=== PATIENT | male | born 1975 | race Caucasian/White ===

== ENCOUNTER 2024-07-03 19:17 | Emergency (ER) | payer SELFPAY ==
[~2024-07-03] VITALS: Ht 175.3 cm; Wt 81.0 kg
[2024-07-03 19:32] VITALS: BP 150/82; PULSE 63; RESP 18; O2SAT 95
--- NOTE | 2024-07-03 19:46 | ED.PDOC ---
Altered Mental Status HPI Comments 39-year-old male came to emergency room via EMS due to overdose, ALOC. Per EMS, [facility] [place] [facility], where witnesses noted patient went out to smoke some weed. Patient was said to never smoked weed before and witnesses claimed he smoked a lot at the [facility]. Patient then started having multiple episodes of nausea and vomiting, and laid down and became unresponsive to verbal stimuli. NO alcohol intake was noted. He does have history of diabetes (blood sugar 298) and recently had a defibrillator inserted. Patient saturating 96% on room air. Chief Complaint: Overdose Time Seen by MD: 19:44 Reviewed Notes: [employer] Operator Notes Allergies: Coded Allergies: NO KNOWN ALLERGIES (Unverified , 07/03/24) Information Source: Emergency Med Personnel Mode of Arrival: EMS Severity: Unable to Care for Self, Unresponsive Timing: Hours Duration: Since onset Prehospital treatment: None Quality: Decreased Alertness, Change in Behavior Recent: Medication/Drug Abuse History of: Diabetes Review of Systems (+) Unable to complete at this time due to the patient being altered Vital Signs Vital Signs Date Time Temp Pulse Resp B/P (MAP) Pulse Ox O2 Delivery O2 Flow Rate FiO2 07/03/24 19:32 97.2 63 18 150/82 (104) 95 Physical Exam General: Patient is obtunded, he responds to painful stimuli, vomitus noted on face Skin: Skin in warm, dry and intact. Appropriate color for ethnicity. Nailbeds pink with no cyanosis. HEENT: The head is normocephalic and atraumatic. Conjunctivae are clear without exudates or hemorrhage. Sclera is non-icteric. EOM are intact. No signs of nys tagmus. Eyelids are normal in appearance without swelling or lesions. Oral mucosa is pink and moist Neck: The neck is supple with normal range of motion. No JVD. Cardiac: Heart rate and rhythm are normal. No murmurs, gallops, or rubs are auscultated. Respiratory: No signs of respiratory distress. Lung sounds are clear in all lobes bilaterally without rales, ronchi, or wheezes. He is protecting his airway. Abdominal: Abdomen is soft, non-tender without distention. Bowel sounds are present and normoactive in all four quadrants. Extremities: Upper and lower extremities are atraumatic in appearance without deformity or edema. Neurological: Patient is obtunded, he reports responds to painful stimuli, follows commands and goes back to sleep, Speech is slurred There is no facial asymmetry. Past Medical History PAST MEDICAL HISTORY: DM Surgical History: Pacemaker Family History Family History: Reviewed,noncontributory to illness Social History Smoker: Non-Smoker Alcohol: Denies ETOH Use Drugs: Marijuana Lives In: Home Was a procedure done? Was a procedure done?: No Differential Diagnosis (ALOC) Differential Diagnosis: Encephalopathy, Seizure, CVA, Drug Overdose X-Ray, Labs, Meds, VS Vital Signs Date Time Temp Pulse Resp B/P (MAP) Pulse Ox O2 Delivery O2 Flow Rate FiO2 07/03/24 19:32 97.2 63 18 150/82 (104) 95 Lab Test 07/03/24 19:56 Range/Units White Blood Count 7.0 4.4-10.8 10^3/uL Red Blood Count 5.07 4.5-5.90 10^6/uL Hemoglobin 14.2 13.5-17.5 g/dL Hematocrit 42.7 41.0-53.0 % Mean Corpuscular Volume 84.1 80.0-100.0 fL Mean Corpuscular Hemoglobin 28.1 28.0-32.0 pg Mean Corpuscular Hemoglobin Concent 33.4 32.0-36.0 g/dL Red Cell Distribution Width 15.4 H 11.8-14.3 % Platelet Count 178 140-450 10^3/uL Mean Platelet Volume 8.3 6.9-10.8 fL Neutrophils (%) (Auto) 84.9 H 37.0-80.0 % Lymphocytes (%) (Auto) 8.0 L 10.0-50.0 % Monocytes (%) (Auto) 6.1 0.0-12.0 % Eosinophils (%) (Auto) 0.7 0.0-7.0 % Basophils (%) (Auto) 0.3 0.0-2.0 % Neutrophils # (Auto) 5.9 1.6-8.6 10 ^3/uL Lymphocytes # (Auto) 0.6 0.4-5.4 10 ^3/uL Monocytes # (Auto) 0.4 0-1.3 10 ^3/uL Eosinophils # (Auto) 0.1 0-0.8 10 ^3/uL Basophils # (Auto) 0 0-0.2 10 ^3/uL Nucleated Red Blood Cells 0.1 % Sodium Level 138 136-145 mmol/L Potassium Level 4.4 3.5-5.1 mmol/L Chloride Level 106 98-107 mmol/L Carbon Dioxide Level 23 20-31 mmol/L Anion Gap 9 5-15 Blood Urea Nitrogen 26 H 9-23 mg/dL Creatinine 1.78 H 0.700-1.30 mg/dL Glomerular Filtration Rate Calc 49 >90 mL/min BUN/Creatinine Ratio 14.6 10.0-20.0 Serum Glucose 236 H 74-106 mg/dL Calcium Level 10.2 8.7-10.4 mg/dL Total Bilirubin 0.4 0.2-1.0 mg/dL Aspartate Amino Transferase (AST) 42 H 13-40 U/L Alanine Aminotransferase (ALT) 77 H 7-40 U/L Alkaline Phosphatase 107 46-116 U/L Total Protein 7.6 5.7-8.2 g/dL Albumin 4.3 3.2-4.8 g/dL Plasma/Serum Blood Alcohol 4.7 <10 mg/dL Current Medications Medications (Trade) Dose Ordered Sig/Melissa Route Start Time Stop Time Status Last Admin Ondansetron HCl (Zofran) 4 mg ONCE ONCE IV 07/03/24 19:45 07/03/24 19:46 DC 07/03/24 21:20 Sodium Chloride 1,000 ml @ 1,000 mls/hr Q1H ONCE IV 07/03/24 19:45 07/03/24 20:44 DC 07/03/24 21:21 Time of 1ST Reevaluation: 19:39 Reevaluation 1ST: Unchanged Patient Education/Counseling: Diagnosis, Treatment, Other (Unresponsive to verbal stimuli), Pt Unresponsive Family Education/Counseling: No Family Present Departure 1 Departure Time of Disposition: 21:35 Impression: Primary Impression: Acute renal failure Additional Impressions: Focal infarction of brain Left against medical advice Disposition: 07 LEFT AGAINST MEDICAL ADVICE Condition: Guarded Comments 39-year-old male who presents to the emergency department with altered mental status. CT scan was significant for infarct of unknown acuity. Patient also had renal failure. IV fluids were initiated in the emergency department. Plan to admit the patient for neuro consult, MRI, further evaluation of JERMAINE. The patient regained his mental status. He was awake, alert and oriented x3. His family was at the bedside. Patient is stating he would like to go home. He does not want to be admitted. Discussed with the patient risk of leaving against medical advice including poor prognosis, adverse sequela of untreated acute kidney injury, further stroke, neurologic damage, , other. Patient voices understanding and states he wants to leave. Patient is advised he may return to the emergency department at any time. He is advised to follow up with primary care provider promptly for re-evaluation. Critical Care Note Critical Care Time?: No Stability Stability form required: No Heart Score Heart Score: Heart Score Response (Comments) Value History N/A 0 EKG N/A 0 Age N/A 0 Risk Factors N/A 0 Troponin N/A 0 Total 0 I personally scribed for STEVENSON CAMPA MD ([email or web address]) on 07/03/24 at 19:46. Electronically submitted by Lawrence Spencer ([email or web address]). STEVENSON CAMPA MD Jul 03, 2024 19:46
[2024-07-03 20:15] LABS: Basophils # (auto) 0 10 ^3/uL (0-0.2); Basophils % (auto) 0.3 % (0.0-2.0); Eosinophils # (auto) 0.1 10 ^3/uL (0-0.8); Eosinophils % (auto) 0.7 % (0.0-7.0); Hematocrit 42.7 % (41.0-53.0); Hemoglobin 14.2 g/dL (13.5-17.5); Lymphocytes # (auto) 0.6 10 ^3/uL (0.4-5.4); Mean Corpuscular Hemoglobin 28.1 pg (28.0-32.0); Mean Corpuscular Hgb Conc. 33.4 g/dL (32.0-36.0); Mean Corpuscular Volume 84.1 fL (80.0-100.0); Monocytes # (auto) 0.4 10 ^3/uL (0-1.3); Monocytes % (auto) 6.1 % (0.0-12.0); Neutrophils # (auto) 5.9 10 ^3/uL (1.6-8.6); Neutrophils % (auto) 84.9 % (37.0-80.0); Nucleated Red Blood Cells % 0.1 %; Platelet Count (auto) 178 10^3/uL (140-450); Red Blood Cells 5.07 10^6/uL (4.5-5.90); Red Cell Distribution Width 15.4 % (11.8-14.3)
[2024-07-03 20:29] LABS: Albumin 4.3 g/dL (3.2-4.8); Alkaline Phosphatase 107 U/L (46-116); Anion Gap 9 (5-15); BUN/Creatinine Ratio 14.6 (10.0-20.0); Blood Alcohol 4.7 mg/dL (<10); Calcium 10.2 mg/dL (8.7-10.4); Carbon Dioxide 23 mmol/L (20-31); Chloride 106 mmol/L (98-107); Potassium 4.4 mmol/L (3.5-5.1); Sodium 138 mmol/L (136-145)
[2024-07-03 20:30] LABS: Bilirubin, Total 0.4 mg/dL (0.2-1.0); Total Protein 7.6 g/dL (5.7-8.2)
[2024-07-03 20:33] LABS: Alanine Aminotransferase 77 U/L (7-40); Aspartate Aminotransferase 42 U/L (13-40); Blood Urea Nitrogen 26 mg/dL (9-23); Glucose 236 mg/dL (74-106)
[2024-07-03] MEDS: ONDANSETRON HCL 4 MG/2 ML VIAL IV ONE (21:20)
[2024-07-03] MEDS: SODIUM CHLORIDE 0.9% 1,000 ML IV ONE (21:21)
--- NOTE | 2024-07-03 21:21 | DVH ---
Procedure: CT HEAD WITHOUT CONTRAST Study Date and Requested Time: 07/03/2024 08:59 PM History: ams Comparison: None Dose: CTDI: 66.48 mGy DLP: 1176.95 mGycm Technique: Multiplanar images obtained through the brain without intravenous contrast. Findings: Moderate diffuse brain atrophy. Mild chronic small vessel ischemic changes. Asymmetric hypodensity o padmini the left frontal lobe. No hemorrhages, masses, mass effect, midline shift, herniation or cytotoxic edema following a large v ascular territory. No intra-axial or extra-axial fluid collections. No evidence of hydrocephalus. The basal cisterns are patent. The pituitary gland, sella and parasellar regions are unremarkable. The cerebellar tonsils are in nor mal position. The cerebellum is unremarkable. The orbits and globes are unremarkable. Near-complete opacification of the left maxillary sinus. Mil d mucoperiosteal thickening of the left frontal, left ethmoid and right maxillary sinus. The mastoid s are clear. There are no worrisome calvarial lesions. Mild scalp edema. Impression: Asymmetric left frontal lobe hypodensity which may represent area of infarct of unknown chronicity. MRI would be helpful for further evaluation. Near-complete opacification of the partially visualized left maxillary sinus with mild mucoperiosteal thickening of the left frontal, left ethmoid and right maxillary sinuses.
== END 2024-07-03 23:50 | disposition left against medical advice (07) ==
LOC: ER 19:17 → EDBD 19:17 → ER 23:50
DX: N19 Unspecified kidney failure (principal); E11.9 Type 2 diabetes mellitus without complications; R51.9 Headache, unspecified; Z95.0 Presence of cardiac pacemaker
CPT/HCPCS: 36415; 70450; 80053; 80320; 85025; 96361; 96374; 99285; J2405; J7030